=== PATIENT | female | born 1990 | race Caucasian/White ===

== ENCOUNTER 2020-08-24 11:45 | Emergency (ER) | payer MEDICAID ==
[~2020-08-24] VITALS: Ht 175.3 cm; Wt 91.2 kg
[2020-08-24 11:50] VITALS: BP 125/80
--- NOTE | 2020-08-24 11:50 | NUR ---
PT AMBULATED TO BED 4.
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
--- NOTE | 2020-08-24 12:12 | NUR ---
DR. MICHELLE EVALUATING PT AT BEDSIDE
--- NOTE | 2020-08-24 12:55 | NUR ---
X-Ray at bedside.
--- NOTE | 2020-08-24 13:08 | NUR ---
DR. MICHELLE SPEAKING WITH PT AT BEDSIDE
[2020-08-24 13:30] VITALS: BP 106/74
--- NOTE | 2020-08-24 13:30 | NUR ---
Patient discharged with v/s stable. Written and verbal after care instructions given and explained. Patient verbalized understanding. Ambulatory with steady gait. All questions addressed prior to discharge. Advised to follow up with PMD.
== END 2020-08-24 13:30 | disposition home or self-care (01) ==
LOC: MED 11:45
DX: M25.561 Pain in right knee (principal); Z98.890 Other specified postprocedural states
CPT/HCPCS: 73562; 99283

== ENCOUNTER 2023-07-25 12:52 | Emergency (ER) | payer MEDICAID, OTHER ==
[~2023-07-25] VITALS: Ht 172.7 cm; Wt 94.3 kg
[2023-07-25 13:02] VITALS: BP 142/72; PULSE 94; RESP 20; TEMP 98.2; O2SAT 100
[2023-07-25 13:20] VITALS: O2SAT 98
[2023-07-25 13:27] LABS: APPEARANCE,URINE CLEAR (CLEAR); BILIRUBIN,URINE NEGATIVE (NEGATIVE); BLOOD, URINE 2+ (NEGATIVE); COLOR,URINE YELLOW (YELLOW); LEUKOCYTE ESTERASE ,URINE NEGATIVE (NEGATIVE); NITRITE, URINE NEGATIVE (NEGATIVE); PROTEIN,URINE NEGATIVE (NEGATIVE); UGLUCOSE NEGATIVE (NEGATIVE); UROBILINOGEN,URINE 0.2 EU/dL (0.2 - 1)
[2023-07-25 13:28] LABS: BASOPHILS % (AUTO) 0.3 % (0.0-2.0); EOSINOPHILS # (AUTO) 0.2 K/uL (0-0.4); EOSINOPHILS % (AUTO) 2.6 % (0.0-4.0); HEMATOCRIT 36.4 % (36-48); HEMOGLOBIN 12.1 g/dL (12.0-16.0); LYMPHOCYTES # (AUTO) 1.4 K/uL (2.5-16.5); LYMPHOCYTES % (AUTO) 18.4 % (20.5-51.1); MEAN CORPUSCULAR HEMOGLOBIN 30 pg (27-31); MEAN CORPUSCULAR HGB CONC 33 g/dL (33-37); MEAN CORPUSCULAR VOLUME 90.6 fL (80-94); MONOCYTES # (AUTO) 0.6 K/uL (0.8-1.0); MONOCYTES % (AUTO) 7.8 % (1.7-9.3); NEUTROPHILS # (AUTO) 5.3 K/uL (1.8-7.7); NEUTROPHILS % (AUTO) 70.9 % (42.2-75.2); PLATELET COUNT (AUTO) 322 K/uL (140-450); RED BLOOD CELL COUNT(AUTO) 4.02 MIL/uL (4.20-5.40); RED CELL DISTRIBUTION WIDTH 15.4 % (11.6-13.7); WHITE BLOOD COUNT (AUTO) 7.5 K/uL (4.8-10.8)
[2023-07-25 13:37] LABS: RBC,URINE 0-5 /HPF (0-5)
[2023-07-25 13:38] LABS: BACTERIA,URINE 0-2 /HPF (None Seen); SQUAMOUS EPITHELIAL CELL,UR 4-10 (MOD) /LPF (0-3 (FEW)); WBC,URINE 0-5 /HPF (0-5)
[2023-07-25 13:44] LABS: ALBUMIN 3.1 g/dL (3.4-5.0); ANION GAP 10.9 (8-16); CALCIUM 9.9 mg/dL (8.5-10.1); CARBON DIOXIDE 28.9 mmol/L (21-32); CREATININE 0.9 mg/dL (0.6-1.3); POTASSIUM 3.8 mmol/L (3.5-5.1); TOTAL BILIRUBIN 0.5 mg/dL (0.0-1.0); TOTAL PROTEIN, SERUM 7.9 g/dL (6.4-8.2)
[2023-07-25] MEDS ORDERED: LEVO750T75 PO ×2 (14:06→14:33)
[2023-07-25] MEDS ORDERED: IBUP-2213 PO ×2 (14:06→14:33)
[2023-07-25] MEDS ORDERED: ACET-10509 PO ×2 (14:06→14:33)
[2023-07-25 14:28] VITALS: BP 116/80; PULSE 91; RESP 18; TEMP 97.4
[2023-07-25 14:51] VITALS: O2SAT 98
== END 2023-07-25 14:29 | disposition home or self-care (01) ==
LOC: MED 12:52
DX: N39.0 Urinary tract infection, site not specified (principal); Z79.899 Other long term (current) drug therapy; Z79.1 Long term (current) use of non-steroidal anti-inflammatories (NSAID); Z79.2 Long term (current) use of antibiotics
CPT/HCPCS: 36415; 80053; 81001; 81025; 85025; 87086; 99283

== ENCOUNTER 2024-05-20 17:59 | Emergency (ER) | payer OTHER ==
[~2024-05-20] VITALS: Ht 172.7 cm; Wt 104.4 kg
[~2024-05-20 17:59] MED LIST: ACET-10509 PO; IBUP-2213 PO; LEVO750T75 PO
[2024-05-20 18:02] VITALS: BP 117/70; PULSE 76; RESP 16; TEMP 98; O2SAT 100
[2024-05-20] MEDS: ACETAMINOPHEN EXTRA STRENGTH 500 MG TAB PO ONE (18:47)
[2024-05-20] MEDS ORDERED: NAPR-337 PO (20:07)
[2024-05-20 20:27] VITALS: BP 117/70; PULSE 76; RESP 16; TEMP 98; O2SAT 100
== END 2024-05-20 20:27 | disposition home or self-care (01) ==
LOC: MED 17:59
DX: R51.9 Headache, unspecified (principal); Z79.899 Other long term (current) drug therapy
CPT/HCPCS: 99282